=== PATIENT | male | born 1995 | race Two or more races ===

== ENCOUNTER 2023-12-09 20:19 | Emergency (ER) | payer MEDICAID, OTHER ==
[~2023-12-09] VITALS: Ht 172.7 cm; Wt 112.2 kg
[2023-12-09] MEDS: ACETAMINOPHEN 325 MG TAB PO ONE (21:12)
[2023-12-09 21:49] LABS: COVID19 ANTIGEN SOFIA FIA NEGATIVE (NEGATIVE); Rapid Influenza A Negative (Negative); Rapid Influenza B Negative (Negative)
[2023-12-09] MEDS ORDERED: PRED20TA2 PO (22:37)
[2023-12-09] MEDS ORDERED: IBUP-1456 PO (22:37)
[2023-12-09] MEDS ORDERED: AMOX875T4 PO (22:37)
[2023-12-09] MEDS: cefTRIAXone SOD 1,000 MG VL IM ONE (22:47)
[2023-12-09] MEDS: methylPREDNISolone SOD SUCC 125 MG/2 ML VL IM ONE (22:47)
[2023-12-09 22:58] VITALS: BP 113/83; TEMP 102.3
[2023-12-09 23:00] VITALS: PULSE 93; RESP 18; O2SAT 98
== END 2023-12-09 23:11 | disposition home or self-care (01) ==
LOC: ER 20:19
DX: J06.9 Acute upper respiratory infection, unspecified (principal); Z20.822 Contact with and (suspected) exposure to COVID-19
CPT/HCPCS: 36415; 87426; 87804; 96372; 99284; J0696; J2930